=== PATIENT | male | born 1955 | race Caucasian/White ===

== ENCOUNTER 2023-07-15 21:03 | Inpatient (IN) | payer BC, MEDICARE ==
--- NOTE | 2023-07-15 21:37 | ED ---
SOB HPI - General Chief Complaint: Shortness of Breath Stated Complaint: SOB Time Seen by Provider: 07/15/23 21:15 Source: patient Mode of arrival: EMS Limitations: no limitations - History of Present Illness Initial Comments: 67-year-old male with past medical history of COPD on 2 L home O2, hypertension, congestive heart failure who presents to the emergency department with shortness of breath. He was a transfer from [facility]. He states that he has been using his inhaler 4 times a day. He has been wearing his oxygen. He continues to be short of breath. He went to the nurse who found him to have oxygen saturations in the 80s. He denies any chest pain. He has been at [facility] for 1 week for alcohol. He denies a cough. No history of DVT or PE. He does have some swelling in his right leg which is worse than his left. No fevers. No productive cough. No other alleviating, precipitating modifying factors - Related Data Home Medications Medication Instructions Recorded Confirmed Acamprosate Calcium [Campral] 666 mg PO TID 07/16/23 07/16/23 Albuterol Nebulized [Ventolin 2.5 mg INHALATION RT-Q4H PRN 07/16/23 07/16/23 Nebulized] Albuterol Sulfate [Albuterol 2 puff PO RT-QID PRN 07/16/23 07/16/23 Sulfate Hfa] Aspirin EC [Ecotrin Low Dose] 81 mg PO DAILY 07/16/23 07/16/23 Clopidogrel [Plavix] 75 mg PO DAILY 07/16/23 07/16/23 Escitalopram [Lexapro] 5 mg PO DAILY 07/16/23 07/16/23 Ezetimibe [Zetia] 10 mg PO HS 07/16/23 07/16/23 Fluticasone/Umeclidin/Vilanter 1 puff INHALATION RT-DAILY 07/16/23 07/16/23 [Trelehelena Ellipta 100-62.5-25] Loperamide HCl [Imodium A-D] 4 mg PO QID PRN 07/16/23 07/16/23 Losartan [Cozaar] 25 mg PO HS 07/16/23 07/16/23 Metoprolol Tartrate [Lopressor] 25 mg PO BID 07/16/23 07/16/23 Nitroglycerin Sl Tabs [Nitrostat] 0.4 mg SUBLINGUAL Q5M PRN 07/16/23 07/16/23 Omeprazole [PriLOSEC] 40 mg PO HS 07/16/23 07/16/23 Ranolazine [Ranexa] 1,000 mg PO BID 07/16/23 07/16/23 Rosuvastatin [Crestor] 10 mg PO HS 07/16/23 07/16/23 amLODIPine [Norvasc] 2.5 mg PO DAILY 07/16/23 07/16/23 Allergies Allergy/AdvReac Type Severity Reaction Status Date / Time No Known Allergies Allergy Verified 07/16/23 07:19 Review of Systems ROS Statement: Those systems with pertinent positive or pertinent negative responses have been documented in the HPI. ROS Other: All systems not noted in ROS Statement are negative. Past Medical History Past Medical History: Heart Failure, COPD, Hypertension History of Any Multi-Drug Resistant Organisms: None Reported Past Surgical History: Appendectomy, Cholecystectomy Additional Past Surgical History / Comment(s): Bypass, stent, aortic aneurysm Past Psychological History: Anxiety Smoking Status: Former smoker Past Alcohol Use History: Abuse Past Drug Use History: None Reported General Exam Limitations: no limitations General appearance: alert, in no apparent distress Head exam: Present: atraumatic, normocephalic, normal inspection Eye exam: Present: normal appearance, PERRL, EOMI. Absent: scleral icterus, conjunctival injection, periorbital swelling ENT exam: Present: normal exam, mucous membranes moist Neck exam: Present: normal inspection. Absent: tenderness, meningismus, lymphad enopathy Respiratory exam: Present: accessory muscle use, decreased breath sounds Cardiovascular Exam: Present: regular rate, normal rhythm, normal heart sounds. Absent: systolic murmur, diastolic murmur, rubs, gallop, clicks GI/Abdominal exam: Present: soft, normal bowel sounds. Absent: distended, tenderness, guarding, rebound, rigid Back exam: Present: normal inspection Neurological exam: Present: alert, oriented X3, CN II-XII intact Psychiatric exam: Present: normal affect, normal mood Course Vital Signs 07/15/23 07/15/23 07/16/23 21:14 23:56 00:34 Temperature 98 F Pulse Rate 72 66 60 Pulse Rate [ Right] Respiratory 18 18 16 Rate Blood Pressure 160/68 156/99 156/99 Blood Pressure [Left Arm] O2 Sat by Pulse 90 L 93 L 96 Oximetry 07/16/23 07/16/23 07/16/23 00:51 01:00 01:01 Temperature Pulse Rate 67 64 65 Pulse Rate [ Right] Respiratory 12 Rate Blood Pressure 152/74 Blood Pressure [Left Arm] O2 Sat by Pulse 99 Oximetry 07/16/23 07/16/23 07/16/23 02:00 03:00 04:00 Temperature Pulse Rate 64 61 68 Pulse Rate [ Right] Respiratory 15 15 16 Rate Blood Pressure 150/62 150/57 145/64 Blood Pressure [Left Arm] O2 Sat by Pulse 95 95 95 Oximetry 07/16/23 07/16/23 07/16/23 04:32 04:41 05:00 Temperature Pulse Rate 82 67 68 Pulse Rate [ Right] Respiratory 16 Rate Blood Pressure 151/70 Blood Pressure [Left Arm] O2 Sat by Pulse 98 Oximetry 07/16/23 07/16/23 06:00 07:00 Temperature 97.9 F Pulse Rate 73 73 Pulse Rate [ 76 Right] Respiratory 14 16 Rate Blood Pressure 155/61 152/65 Blood Pressure 161/65 [Left Arm] O2 Sat by Pulse 99 92 L Oximetry Medical Decision Making - Medical Decision Making Was pt. sent in by a medical professional or institution ([facility], SENIOR APPLICATIONS ARCHITECT, urgent care, hospital, or assisted...) When possible be specific @ -Patient was sent in from [facility] Did you speak to anyone other than the patient for history (EMS, parent, family, police, friend...)? What history was obtained from this source @ -Spoke with EMS for history Did you review nursing and triage notes (agree or disagree)? Why? @ -I reviewed and agree with nursing and triage notes Were old charts reviewed (outside hosp., previous admission, EMS record, old EKG, old radiological studies, urgent care reports/EKG's, assisted records)? Report findings @ -No old charts were reviewed Differential Diagnosis (chest pain, altered mental status, abdominal pain women, abdominal pain men, vaginal bleeding, weakness, fever, dyspnea, syncope, headache, dizziness, GI bleed, back pain, seizure, CVA, palpatations, mental health, musculoskeletal)? @ -Differential Dyspnea: Coronary syndrome, arrhythmia, tamponade, asthma, COPD, pulmonary embolism, pneumonia, pneumothorax, pulmonary effusion, anaphylaxis, diabetic ketoacidosis, flailed chest, pulmonary contusion, diaphragmatic rupture, anemia, neuromuscular, this is not meant to be an all-inclusive list. EKG interpreted by me (3pts min.). @ -Yes and demonstrates sinus rhythm with a rate of 64. LA interval 156. QRS 117. QTc of 428. No acute ST segment elevation or depression X-rays interpreted by me (1pt min.). @ -Yes and demonstrates possible pneumonia CT interpreted by me (1pt min.). @ -Yes and does not demonstrate a PE U/S interpreted by me (1pt. min.). @ -None done What testing was considered but not performed or refused? (CT, X-rays, U/S, labs)? Why? @ -None What meds were considered but not given or refused? Why? @ -None Did you discuss the management of the patient with other professionals (professionals i.e. , PA, SENIOR APPLICATIONS ARCHITECT, lab, RT, psych nurse, psychiatric social worker supervisor, help desk support, teacher, strike warfare/missile systems officer, correctional casework specialist)? Give summary @ -Spoke with Edmundo from [facility] Was smoking cessation discussed for >3mins.? @ -No Was critical care preformed (if so, how long)? @ -No Were there social determinants of health that impacted care today? How? (Homelessness, low income, unemployed, alcoholism, drug addiction, transportation, low edu. Level, literacy, decrease access to med. care, usp, rehab)? @ -Patient is currently in rehab Was there de-escalation of care discussed even if they declined (Discuss DNR or withdrawal of care, Hospice)? DNR status @ -No What co-morbidities impacted this encounter? (DM, HTN, Smoking, COPD, CAD, Cancer, CVA, ARF, Chemo, Hep., AIDS, mental health diagnosis, sleep apnea, morbid obesity)? @ -COPD Was patient admitted / discharged? Hospital course, mention meds given and route, prescriptions, significant lab abnormalities, going to OR and other pertinent info. @ -Upon arrival patient seen and evaluated in room 3. Thorough history and physical exam was performed. Patient remains on 2 L of oxygen. Laboratory studies are conducted. Chest x-ray was performed. Patient was given a breathing treatment by EMS and a breathing treatment by myself. Laboratory studies and imaging is reviewed. Chest x-ray demonstrates possible pneumonia. Due to patient's work of breathing I did recommend admission. Patient was agreeable to this. Spoke with Edmundo from [facility] who will admit the patient Undiagnosed new problem with uncertain prognosis? @ -Yes Drug Therapy requiring intensive monitoring for toxicity (Heparin, Nitro, Insulin, Cardizem)? @ -No Were any procedures done? @ -No Diagnosis/symptom? @ -Acute exacerbation of chronic respiratory failure, acute exacerbation of COPD, possible pneumonia Acute, or Chronic, or Acute on Chronic? @ -Acute on chronic Uncomplicated (without systemic symptoms) or Complicated (systemic symptoms)? @ -Complicated Side effects of treatment? @ -No Exacerbation, Progression, or Severe Exacerbation? @ -Yes Poses a threat to life or bodily function? How? (Chest pain, [place], [place], pneumonia, PE, COPD, DKA, ARF, appy, cholecystitis, CVA, Diverticulitis, Homicidal, Suicidal, threat to staff... and all critical care pts) @ -Yes as patient does have increased work of breathing - Lab Data Result diagrams: 07/17/23 05:36 07/19/23 07:23 Lab Results 07/15/23 07/15/23 07/15/23 Range/Units 21:25 21:25 21:25 WBC 6.0 (3.8-10.6) k/uL RBC 4.16 L (4.30-5.90) m/uL Hgb 11.9 L (13.0-17.5) gm/dL Hct 36.1 L (39.0-53.0) % MCV 86.9 (80.0-100.0) fL MCH 28.6 (25.0-35.0) pg MCHC 32.9 (31.0-37.0) g/dL RDW 16.8 H (11.5-15.5) % Plt Count 221 (150-450) k/uL MPV 7.2 Immature Gran % (Auto) % Absolute Nucleated RBC % Neutrophils % 70 % Lymphocytes % 13 % Monocytes % 12 % Eosinophils % 2 % Basophils % 1 % Immature Gran # (0.00-0.04) X 10*3/uL Neutrophils # 4.2 (1.3-7.7) k/uL Lymphocytes # 0.8 L (1.0-4.8) k/uL Monocytes # 0.7 (0-1.0) k/uL Eosinophils # 0.1 (0-0.7) k/uL Basophils # 0.1 (0-0.2) k/uL NRBC/100 WBC Diff (0.00-0.01) X 10*3/uL Anisocytosis Slight PT 10.4 (10.0-12.5) sec INR 0.9 (<1.2) APTT 27.6 (22.0-30.0) sec D-Dimer (<0.60) mg/L FEU Sodium 130 L (137-145) mmol/L Potassium 4.4 (3.5-5.1) mmol/L Chloride 100 (98-107) mmol/L Carbon Dioxide 24 (22-30) mmol/L Anion Gap 6 mmol/L BUN 29 H (9-20) mg/dL Creatinine 0.95 (0.66-1.25) mg/dL Est GFR (CKD-EPI) (>=60) Est GFR (CKD-EPI)AfAm >90 (>60 ml/min/1.73 sqM) Est GFR (CKD-EPI)NonAf 83 (>60 ml/min/1.73 sqM) BUN/Creatinine Ratio (12.00-20.00) Ratio Glucose 101 H (74-99) mg/dL Plasma Lactic Acid Nico (0.7-2.0) mmol/L Calcium 8.8 (8.4-10.2) mg/dL Total Bilirubin 0.5 (0.2-1.3) mg/dL AST 24 (17-59) U/L ALT 14 (4-49) U/L Alkaline Phosphatase 62 (38-126) U/L Troponin I (0.000-0.034) ng/mL NT-Pro-B Natriuret Pep 759 pg/mL Total Protein 6.6 (6.3-8.2) g/dL Albumin 3.8 (3.5-5.0) g/dL Procalcitonin (0.02-0.09) ng/mL Influenza Type A (PCR) (Not Detectd) Influenza Type B (PCR) (Not Detectd) Urine Legionella Ag (Negative) RSV (PCR) (Not Detectd) SARS-CoV-2 (PCR) (Not Detectd) 05/16/24 05/16/24 05/16/24 Range/Units 21:25 21:25 21:43 WBC (3.8-10.6) k/uL RBC (4.30-5.90) m/uL Hgb (13.0-17.5) gm/dL Hct (39.0-53.0) % MCV (80.0-100.0) fL MCH (25.0-35.0) pg MCHC (31.0-37.0) g/dL RDW (11.5-15.5) % Plt Count (150-450) k/uL MPV Immature Gran % (Auto) % Absolute Nucleated RBC % Neutrophils % % Lymphocytes % % Monocytes % % Eosinophils % % Basophils % % Immature Gran # (0.00-0.04) X 10*3/uL Neutrophils # (1.3-7.7) k/uL Lymphocytes # (1.0-4.8) k/uL Monocytes # (0-1.0) k/uL Eosinophils # (0-0.7) k/uL Basophils # (0-0.2) k/uL NRBC/100 WBC Diff (0.00-0.01) X 10*3/uL Anisocytosis PT (10.0-12.5) sec INR (<1.2) APTT (22.0-30.0) sec D-Dimer (<0.60) mg/L FEU Sodium (137-145) mmol/L Potassium (3.5-5.1) mmol/L Chloride (98-107) mmol/L Carbon Dioxide (22-30) mmol/L Anion Gap mmol/L BUN (9-20) mg/dL Creatinine (0.66-1.25) mg/dL Est GFR (CKD-EPI) (>=60) Est GFR (CKD-EPI)AfAm (>60 ml/min/1.73 sqM) Est GFR (CKD-EPI)NonAf (>60 ml/min/1.73 sqM) BUN/Creatinine Ratio (12.00-20.00) Ratio Glucose (74-99) mg/dL Plasma Lactic Acid Nico 0.8 (0.7-2.0) mmol/L Calcium (8.4-10.2) mg/dL Total Bilirubin (0.2-1.3) mg/dL AST (17-59) U/L ALT (4-49) U/L Alkaline Phosphatase (38-126) U/L Troponin I <0.012 (0.000-0.034) ng/mL NT-Pro-B Natriuret Pep pg/mL Total Protein (6.3-8.2) g/dL Albumin (3.5-5.0) g/dL Procalcitonin (0.02-0.09) ng/mL Influenza Type A (PCR) Not Detected (Not Detectd) Influenza Type B (PCR) Not Detected (Not Detectd) Urine Legionella Ag (Negative) RSV (PCR) Not Detected (Not Detectd) SARS-CoV-2 (PCR) Not Detected (Not Detectd) 07/15/23 07/16/23 07/17/23 Range/Units 21:55 03:19 05:30 WBC (3.8-10.6) k/uL RBC (4.30-5.90) m/uL Hgb (13.0-17.5) gm/dL Hct (39.0-53.0) % MCV (80.0-100.0) fL MCH (25.0-35.0) pg MCHC (31.0-37.0) g/dL RDW (11.5-15.5) % Plt Count (150-450) k/uL MPV Immature Gran % (Auto) % Absolute Nucleated RBC % Neutrophils % % Lymphocytes % % Monocytes % % Eosinophils % % Basophils % % Immature Gran # (0.00-0.04) X 10*3/uL Neutrophils # (1.3-7.7) k/uL Lymphocytes # (1.0-4.8) k/uL Monocytes # (0-1.0) k/uL Eosinophils # (0-0.7) k/uL Basophils # (0-0.2) k/uL NRBC/100 WBC Diff (0.00-0.01) X 10*3/uL Anisocytosis PT (10.0-12.5) sec INR (<1.2) APTT (22.0-30.0) sec D-Dimer 1.53 H (<0.60) mg/L FEU Sodium (137-145) mmol/L Potassium (3.5-5.1) mmol/L Chloride (98-107) mmol/L Carbon Dioxide (22-30) mmol/L Anion Gap mmol/L BUN (9-20) mg/dL Creatinine (0.66-1.25) mg/dL Est GFR (CKD-EPI) (>=60) Est GFR (CKD-EPI)AfAm (>60 ml/min/1.73 sqM) Est GFR (CKD-EPI)NonAf (>60 ml/min/1.73 sqM) BUN/Creatinine Ratio (12.00-20.00) Ratio Glucose (74-99) mg/dL Plasma Lactic Acid Nico (0.7-2.0) mmol/L Calcium (8.4-10.2) mg/dL Total Bilirubin (0.2-1.3) mg/dL AST (17-59) U/L ALT (4-49) U/L Alkaline Phosphatase (38-126) U/L Troponin I (0.000-0.034) ng/mL NT-Pro-B Natriuret Pep pg/mL Total Protein (6.3-8.2) g/dL Albumin (3.5-5.0) g/dL Procalcitonin 0.03 (0.02-0.09) ng/mL Influenza Type A (PCR) (Not Detectd) Influenza Type B (PCR) (Not Detectd) Urine Legionella Ag Negative (Negative) RSV (PCR) (Not Detectd) SARS-CoV-2 (PCR) (Not Detectd) 07/17/23 07/17/23 07/18/23 Range/Units 05:36 05:36 04:05 WBC 9.32 (3.8-10.6) k/uL RBC 3.78 L (4.30-5.90) m/uL Hgb 10.5 L (13.0-17.5) gm/dL Hct 32.4 L (39.0-53.0) % MCV 85.7 (80.0-100.0) fL MCH 27.8 (25.0-35.0) pg MCHC 32.4 (31.0-37.0) g/dL RDW 17.3 H (11.5-15.5) % Plt Count 227 (150-450) k/uL MPV 9.1 L Immature Gran % (Auto) 0.40 % Absolute Nucleated RBC 0 % Neutrophils % 86.0 % Lymphocytes % 4.5 % Monocytes % 9.1 % Eosinophils % 0 % Basophils % 0 % Immature Gran # 0.04 (0.00-0.04) X 10*3/uL Neutrophils # 8.01 H (1.3-7.7) k/uL Lymphocytes # 0.42 L (1.0-4.8) k/uL Monocytes # 0.85 (0-1.0) k/uL Eosinophils # 0 L (0-0.7) k/uL Basophils # 0 (0-0.2) k/uL NRBC/100 WBC Diff 0 (0.00-0.01) X 10*3/uL Anisocytosis PT (10.0-12.5) sec INR (<1.2) APTT (22.0-30.0) sec D-Dimer (<0.60) mg/L FEU Sodium 135 136 (137-145) mmol/L Potassium 4.8 4.2 (3.5-5.1) mmol/L Chloride 100 97 (98-107) mmol/L Carbon Dioxide 25.3 28.5 (22-30) mmol/L Anion Gap 9.70 10.50 mmol/L BUN 25.8 23.4 (9-20) mg/dL Creatinine 0.9 1.1 (0.66-1.25) mg/dL Est GFR (CKD-EPI) 94 74 (>=60) Est GFR (CKD-EPI)AfAm (>60 ml/min/1.73 sqM) Est GFR (CKD-EPI)NonAf (>60 ml/min/1.73 sqM) BUN/Creatinine Ratio 28.67 H 21.27 H (12.00-20.00) Ratio Glucose 141 H 99 (74-99) mg/dL Plasma Lactic Acid Nico (0.7-2.0) mmol/L Calcium 8.5 L 8.5 L (8.4-10.2) mg/dL Total Bilirubin (0.2-1.3) mg/dL AST (17-59) U/L ALT (4-49) U/L Alkaline Phosphatase (38-126) U/L Troponin I (0.000-0.034) ng/mL NT-Pro-B Natriuret Pep pg/mL Total Protein (6.3-8.2) g/dL Albumin (3.5-5.0) g/dL Procalcitonin (0.02-0.09) ng/mL Influenza Type A (PCR) (Not Detectd) Influenza Type B (PCR) (Not Detectd) Urine Legionella Ag (Negative) RSV (PCR) (Not Detectd) SARS-CoV-2 (PCR) (Not Detectd) 07/19/23 Range/Units 07:23 WBC (3.8-10.6) k/uL RBC (4.30-5.90) m/uL Hgb (13.0-17.5) gm/dL Hct (39.0-53.0) % MCV (80.0-100.0) fL MCH (25.0-35.0) pg MCHC (31.0-37.0) g/dL RDW (11.5-15.5) % Plt Count (150-450) k/uL MPV Immature Gran % (Auto) % Absolute Nucleated RBC % Neutrophils % % Lymphocytes % % Monocytes % % Eosinophils % % Basophils % % Immature Gran # (0.00-0.04) X 10*3/uL Neutrophils # (1.3-7.7) k/uL Lymphocytes # (1.0-4.8) k/uL Monocytes # (0-1.0) k/uL Eosinophils # (0-0.7) k/uL Basophils # (0-0.2) k/uL NRBC/100 WBC Diff (0.00-0.01) X 10*3/uL Anisocytosis PT (10.0-12.5) sec INR (<1.2) APTT (22.0-30.0) sec D-Dimer (<0.60) mg/L FEU Sodium 135 (137-145) mmol/L Potassium 4.0 (3.5-5.1) mmol/L Chloride 98 (98-107) mmol/L Carbon Dioxide 27.3 (22-30) mmol/L Anion Gap 9.70 mmol/L BUN 23.7 (9-20) mg/dL Creatinine 1.2 (0.66-1.25) mg/dL Est GFR (CKD-EPI) 66 (>=60) Est GFR (CKD-EPI)AfAm (>60 ml/min/1.73 sqM) Est GFR (CKD-EPI)NonAf (>60 ml/min/1.73 sqM) BUN/Creatinine Ratio 19.75 (12.00-20.00) Ratio Glucose 114 H (74-99) mg/dL Plasma Lactic Acid Nico (0.7-2.0) mmol/L Calcium 8.8 (8.4-10.2) mg/dL Total Bilirubin (0.2-1.3) mg/dL AST (17-59) U/L ALT (4-49) U/L Alkaline Phosphatase (38-126) U/L Troponin I (0.000-0.034) ng/mL NT-Pro-B Natriuret Pep pg/mL Total Protein (6.3-8.2) g/dL Albumin (3.5-5.0) g/dL Procalcitonin (0.02-0.09) ng/mL Influenza Type A (PCR) (Not Detectd) Influenza Type B (PCR) (Not Detectd) Urine Legionella Ag (Negative) RSV (PCR) (Not Detectd) SARS-CoV-2 (PCR) (Not Detectd) Disposition Clinical Impression: COPD exacerbation, Pneumonia Disposition: ADMITTED IP TO THIS HOSP Condition: Stable Is patient prescribed a controlled substance at d/c from ED?: No Time of Disposition: : Decision to Admit Reason: Admit from EC Decision Date: 07/16/23 Decision Time: :57
[2023-07-15 21:48] LABS: Anisocytosis Slight; Basophils # (A) 0.1 k/uL (0-0.2); Basophils % (A) 1 %; Eosinophils # (A) 0.1 k/uL (0-0.7); Eosinophils % (A) 2 %; HCT 36.1 % (39.0-53.0); HGB 11.9 gm/dL (13.0-17.5); Lymphocytes # (A) 0.8 k/uL (1.0-4.8); Lymphocytes % (A) 13 %; MCH 28.6 pg (25.0-35.0); MCHC 32.9 g/dL (31.0-37.0); MCV 86.9 fL (80.0-100.0); Mean Platelet Volume 7.2; Monocytes # (A) 0.7 k/uL (0-1.0); Monocytes % (A) 12 %; Neutrophils # (A) 4.2 k/uL (1.3-7.7); Neutrophils % (A) 70 %; Platelet Count 221 k/uL (150-450); RBC 4.16 m/uL (4.30-5.90); RDW 16.8 % (11.5-15.5)
[2023-07-15 21:56] LABS: ALT 14 U/L (4-49); AST 24 U/L (17-59); African American GFR (CKD) >90 (>60 ml/min/1.73 sqM); Albumin 3.8 g/dL (3.5-5.0); Alkaline Phosphatase 62 U/L (38-126); Anion Gap 6 mmol/L; Blood Urea Nitrogen 29 mg/dL (9-20); Calcium 8.8 mg/dL (8.4-10.2); Carbon Dioxide 24 mmol/L (22-30); Chloride 100 mmol/L (98-107); Glucose 101 mg/dL (74-99); Non-African American GFR(CKD) 83 (>60 ml/min/1.73 sqM); Potassium 4.4 mmol/L (3.5-5.1); Sodium 130 mmol/L (137-145); Total Bilirubin 0.5 mg/dL (0.2-1.3); Total Protein 6.6 g/dL (6.3-8.2)
[2023-07-15 21:57] LABS: INR 0.9 (<1.2)
[2023-07-15 21:58] LABS: Partial Thromboplastin Time 27.6 sec (22.0-30.0); Prothrombin Time 10.4 sec (10.0-12.5)
[2023-07-15 22:04] LABS: NT-Pro-B-Type Natriuretic Pept 759 pg/mL
--- NOTE | 2023-07-15 22:04 | XR ---
EXAMINATION: XR chest 2V: 07/15/2023 9:47 PM CLINICAL INDICATION: difficulty breathing. ED patient. TECHNIQUE: Departmental protocol COMPARISON: None FINDINGS / IMPRESSION: Ill-defined opacity is seen in both lung bases, suspicious for developing or resolving pneumonia. The right costophrenic angle is blunted, consistent with small right pleural effusion versus pleural thickening.The pleural spaces are otherwise negative. Sternal sutures and mediastinal clips noted. The cardiac silhouette is not enlarged. The skeletal structures and soft tissues are negative for acute findings.
[2023-07-16] MEDS: IPRATROPIUM-ALBUTEROL 3 ML NEB INHALATION STA (00:49)
--- NOTE | 2023-07-16 01:36 | US ---
EXAM: US Duplex Right Lower Extremity Veins CLINICAL HISTORY: ITS.REASON US Reason: leg swelling, sob TECHNIQUE: Real-time duplex ultrasound scan of the right lower extremity veins integrating B-mode two-dimensional vascular structure, Doppler spectral analysis, color flow Doppler imaging and compression. COMPARISON: No relevant prior studies available. FINDINGS: Deep veins: Unremarkable. No DVT in the visualized common femoral, femoral, proximal deep femoral or popliteal veins. The veins demonstrate normal color flow, are normally compressible, with normal phasic flow and/or augmentation response. Superficial veins: Unremarkable. No thrombus in the visualized great saphenous vein. Soft tissues: No acute findings. No popliteal cyst. IMPRESSION: No evidence of DVT in the right lower extremity.
[2023-07-16] MEDS ORDERED: NALOXONE 0.4 MG/ML 1 ML VIAL IV PRN (01:59)
[2023-07-16] MEDS ORDERED: PNEUMONIA PROTOCOL UTILIZED 1 EACH MISC PO PRN (02:02)
[2023-07-16] MEDS: methylPREDNISolone SOD SUCCI 125 MG/2 ML VIAL IV STA (02:20)
--- NOTE | 2023-07-16 02:27 | CT ---
EXAM: CT Angiography Chest With Intravenous Contrast CLINICAL HISTORY: ITS.REASON CT Reason: elevated d-dimer TECHNIQUE: Axial computed tomographic angiography images of the chest with intravenous contrast. CTDI is 22.8 mGy and DLP is 386.1 mGy-cm. This CT exam was performed using one or more of the following dose reduction techniques: automated exposure control, adjustment of the mA and/or kV according to patient size, and/or use of iterative reconstruction technique. MIP reconstructed images were created and reviewed. COMPARISON: No relevant prior studies available. FINDINGS: Artifacts: Breathing motion artifact. Pulmonary arteries: Breathing motion artifact limits evaluation of the smaller peripheral arteries Unremarkable. No pulmonary embolism. Aorta: Moderate atherosclerotic plaque and calcifications of the aorta. Partially visualized infrarenal aortic stent in the upper abdomen. No thoracic aortic aneurysm. Lungs: Centrilobular emphysema. Couple left upper lobe lung cysts. Mild right basilar atelectasis. No mass. Pleural space: Small right pleural effusion. No pneumothorax. Heart: Coronary calcifications. Query left atrial appendage clip. No cardiomegaly. No significant pericardial effusion. No evidence of RV dysfunction. Mediastinum: Small mediastinal nodes, nonspecific. Bones/joints: Median sternotomy wires. No acute fracture. No dislocation. Soft tissues: Unremarkable. Lymph nodes: Small and borderline enlarged bilateral hilar nodes up to 11 mm. IMPRESSION: 1. Small right pleural effusion. Mild right basilar atelectasis. 2. Small and borderline enlarged bilateral hilar nodes up to 11 mm. 3. Centrilobular emphysema.
[2023-07-16] MEDS: AZITHROMYCIN 500 MG in SODIUM CHLORIDE 0.9% 250 ML IVPB STA (03:14)
[2023-07-16] MEDS: IPRATROPIUM-ALBUTEROL 3 ML NEB INHALATION SCH (04:32)
[2023-07-16] MEDS: methylPREDNISolone SOD SUCCI 40 MG/ML 1 ML VIAL IV SCH (11:10)
[2023-07-16] MEDS: FUROSEMIDE 10 MG/ML 2 ML VIAL IV ONE (11:12)
[2023-07-16] MEDS: METOPROLOL TARTRATE 25 MG TAB PO SCH (11:12)
[2023-07-16] MEDS: CLOPIDOGREL 75 MG TAB PO SCH (11:13)
[2023-07-16] MEDS: ASPIRIN 81 MG PO SCH (11:13)
[2023-07-16] MEDS: HEPARIN SODIUM,PORCINE 5,000 UNIT/ML 1 ML VIAL SQ SCH (11:13)
[2023-07-16] MEDS: RANOLAZINE 500 MG TAB.ER.12H PO SCH (11:13)
[2023-07-16] MEDS: amLODIPine 2.5 MG TAB PO SCH (11:16)
[2023-07-16] MEDS: ESCITALOPRAM 5 MG TAB PO SCH (11:16)
--- NOTE | 2023-07-16 12:42 | CA ---
Transthoracic Echo Report Name: Mitch Fisher Age: 67 Gender: M : 1955 Exam Date: 07/16/2023 11:24 Exam Location: [facility] Ht (in): 67 Wt (lb): 180 Ordering Physician: Jessica Hardin Attending/Referring Phys: Wilfred SHEA Pricing Specialist Jerilyn Valentino, JESSICA Procedure CPT: Indications: chf Cardiac Hx: Hx of CABG Technical Quality: Fair Contrast 1: Total Dose (mL): Contrast 2: Total Dose (mL): MEASUREMENTS (Male / Female) Normal Values 2D ECHO LV Diastolic Diameter PLAX 4.0 cm 4.2 - 5.9 / 3.9 - 5.3 cm LV Systolic Diameter PLAX 2.8 cm IVS Diastolic Thickness 1.5 cm 0.6 - 1.0 / 0.6 - 0.9 cm LVPW Diastolic Thickness 1.3 cm 0.6 - 1.0 / 0.6 - 0.9 cm LV Relative Wall Thickness 0.7 RV Internal Dim ED PLAX 3.0 cm LA Systolic Diameter LX 3.5 cm 3.0 - 4.0 / 2.7 - 3.8 cm M-MODE Aortic Root Diameter MM 3.6 cm AV Cusp Separation MM 2.2 cm DOPPLER AV Peak Velocity 168.9 cm/s AV Peak Gradient 11.4 mmHg Mitral E Point Velocity 86.9 cm/s Mitral A Point Velocity 91.2 cm/s Mitral E to A Ratio 1.0 MV Deceleration Time 233.9 ms FINDINGS Left Ventricle Left ventricular ejection fraction is estimated at 55-60 %. Left ventricular cavity size normal. Normal left ventricular systolic function with no obvious regional wall motion abnormalities. Moderately increased left ventricular wall thickness. Right Ventricle Normal right ventricular size and function. Unable to estimate the right ventricular systolic pressure. Right Atrium Normal right atrial size. Left Atrium Normal left atrial size. Mitral Valve Structurally normal mitral valve. No mitral stenosis, regurgitation or prolapse. Aortic Valve Trileaflet aortic valve. Aortic valve sclerosis. No aortic valve stenosis or regurgitation. Tricuspid Valve Structurally normal tricuspid valve. No tricuspid stenosis, or prolapse.mild tricuspid regurgitation. Pulmonic Valve Structurally normal pulmonic valve. No pulmonic regurgitation. Pericardium No pericardial or pleural effusion. Aorta Normal size aortic root and proximal ascending aorta. CONCLUSIONS 1. Normal left ventricular size and systolic function 2. Mild tricuspid regurgitation Previewed by: Dr. Mayra Morillo MD (Electronically Signed) Final Date: 16 Jul 2023 12:41
--- NOTE | 2023-07-16 18:06 | P.HPIM ---
History of Present Illness H&P Date: 07/16/23 This is a pleasant 67 year old male with medical history of heart failure, coronary artery disease with prior open heart and stenting, oxygen dependent COPD, hypertension, aortic aneurysm, anxiety, former smoker, and chronic alcohol use. Patient has been at [facility] since last and reports having increased shortness of breath and leg swelling over the past 3 days. He does wear oxygen as needed states he was requiring it 21/09 and noted his pulse oximeter was reading into the 70s on 2L of oxygen. Patient states he has been unable to ambulate long distances. He does follow with a cardiology out of [facility]; Dr. Erick Stevens. States he is unsure what his ejection fraction is but is supposed to be on a 1 gram sodium restriction daily to help manage his heart failure. Patient feels he has been eating way more than that due to the diet and meals offered at [facility]. He comes in with sodium level of 130, BUN of 29, creatinine of 0.95. His viral panel was negative. Chest xray reveals ill-defined opacity both lung bases suspicious for developing or resolving pneumonia. There is small right pleural effusion. D-Dimer was positive and venous doppler negative right leg for dvt and chest CTA negative for pulmonary embolism. Patient does have small right pleural effusion, mild right basilar atelectasis, small and borderline enlarged bilateral hilar nodes up to 11mm and centrilobar emphysema. Patient has been admitted to the hospital in observation and will be diuresed. He is started on IV lasix 40 mg Q12 hr and echocardiogram requested. Plan is for return to [facility] when medically stable. REVIEW OF SYSTEMS: CONSTITUTIONAL: No fever, no malaise, no fatigue. HEENT: No recent visual problems or hearing problems. Denied any sore throat. CARDIOVASCULAR: No chest pain, orthopnea, PND, no palpitations, no syncope. PULMONARY: Reports shortness of breath, exertional dyspnea, no cough, no hemoptysis. GASTROINTESTINAL: No diarrhea, no nausea, no vomiting, no abdominal pain. NEUROLOGICAL: No headaches, no weakness, no numbness. HEMATOLOGICAL: Denies any bleeding or petechiae. GENITOURINARY: Denies any burning micturition, frequency, or urgency. MUSCULOSKELETAL/RHEUMATOLOGICAL: Denies any joint pain, swelling, or any muscle pain. ENDOCRINE: Denies any polyuria or polydipsia. The rest of the 14-point review of systems is negative. PHYSICAL EXAMINATION: GENERAL: The patient is alert and oriented x3, not in any acute distress. Well developed, well nourished. HEENT: Pupils are round and equally reacting to light. EOMI. No scleral icterus. No conjunctival pallor. Normocephalic, atraumatic. No pharyngeal erythema. No thyromegaly. CARDIOVASCULAR: S1 and S2 present. No murmurs, rubs, or gallops. PULMONARY: No wheezing noted there is faint bibasilar crackles. ABDOMEN: Soft, nontender, nondistended, normoactive bowel sounds. No palpable organomegaly. MUSCULOSKELETAL: No joint swelling or deformity. EXTREMITIES: No cyanosis, clubbing, or pedal edema. NEUROLOGICAL: Gross neurological examination did not reveal any focal deficits. SKIN: No rashes. Assessment and Plan Shortness of breath secondary to acute CHF exacerbation; unknown whether systolic or diastolic echocardiogram ordered and pending Hyponatremia hypervolemic expected to improve with IV lasix and repeat BMP in the AM. Oxygen dependent COPD Elevated D Dimer no evidence for pulmonary embolism Coronary artery disease with prior CABG/PCI on aspirin and plavix Hypertension resumed on losartan Hyperlipidemia continue on crestor Chronic alcoholism currently at [facility] for rehab with plans to return on discharge. Hx of anxiety on lexapro which has been reordered Former smoker GI prophylaxis DVT prophylaxis Full Code The impression and plan of care has been dictated by Jessica Hardin Nurse Practitioner as directed. Dr. Asher MD I have performed a history and physical examination and medical decision making of this patient, discussed the same with the dictator, and agree with the dictators assessment and plan as written, documented as a scribe. Based on total visit time, I have performed more than 50% of this visit. Past Medical History Past Medical History: Heart Failure, COPD, Hypertension History of Any Multi-Drug Resistant Organisms: None Reported Past Surgical History: Appendectomy, Cholecystectomy Additional Past Surgical History / Comment(s): Bypass, stent, aortic aneurysm Past Psychological History: Anxiety Smoking Status: Former smoker Past Alcohol Use History: Abuse Past Drug Use History: None Reported Additional Drug Use History / Comment(s): currently in [facility] for etoh abuse Medications and Allergies Home Medications Medication Instructions Recorded Confirmed Type Acamprosate Calcium [Campral] 666 mg PO TID 07/16/23 07/16/23 History Albuterol Nebulized [Ventolin 2.5 mg INHALATION RT-Q4H PRN 07/16/23 07/16/23 History Nebulized] Albuterol Sulfate [Albuterol 2 puff PO RT-QID PRN 07/16/23 07/16/23 History Sulfate Hfa] Aspirin EC [Ecotrin Low Dose] 81 mg PO DAILY 07/16/23 07/16/23 History Clopidogrel [Plavix] 75 mg PO DAILY 07/16/23 07/16/23 History Escitalopram [Lexapro] 5 mg PO DAILY 07/16/23 07/16/23 History Ezetimibe [Zetia] 10 mg PO HS 07/16/23 07/16/23 History Fluticasone/Umeclidin/Vilanter 1 puff INHALATION RT-DAILY 07/16/23 07/16/23 History [Trelegy Ellipta 100-62.5-25] Loperamide HCl [Imodium A-D] 4 mg PO QID PRN 07/16/23 07/16/23 History Losartan [Cozaar] 25 mg PO HS 07/16/23 07/16/23 History Metoprolol Tartrate [Lopressor] 25 mg PO BID 07/16/23 07/16/23 History Nitroglycerin Sl Tabs [Nitrostat] 0.4 mg SUBLINGUAL Q5M PRN 07/16/23 07/16/23 History Omeprazole [PriLOSEC] 40 mg PO HS 07/16/23 07/16/23 History Ranolazine [Ranexa] 1,000 mg PO BID 07/16/23 07/16/23 History Rosuvastatin [Crestor] 10 mg PO HS 07/16/23 07/16/23 History amLODIPine [Norvasc] 2.5 mg PO DAILY 07/16/23 07/16/23 History Allergies Allergy/AdvReac Type Severity Reaction Status Date / Time No Known Allergies Allergy Verified 07/16/23 07:19 Physical Exam Vitals: Vital Signs Temp Pulse Pulse Resp BP BP Pulse Ox 07/16/23 16:44 80 07/16/23 16:29 76 07/16/23 15:00 98.1 F 78 16 132/66 95 07/16/23 14:00 76 18 07/16/23 13:27 18 07/16/23 12:40 68 07/16/23 12:27 68 07/16/23 09:30 88 07/16/23 09:15 96 07/16/23 07:00 97.9 F 73 76 16 152/65 161/65 92 L 07/16/23 06:00 73 14 155/61 99 07/16/23 05:00 68 16 151/70 98 07/16/23 04:41 67 07/16/23 04:32 82 07/16/23 04:00 68 16 145/64 95 07/16/23 03:00 61 15 150/57 95 07/16/23 02:00 64 15 150/62 95 07/16/23 01:01 65 07/16/23 01:00 64 12 152/74 99 07/16/23 00:51 67 07/16/23 00:34 60 16 156/99 96 07/15/23 23:56 66 18 156/99 93 L 07/15/23 21:14 98 F 72 18 160/68 90 L Intake and Output 07/16/23 07/16/23 07/16/23 06:59 14:59 22:59 Other: # Voids 3 Weight 81.647 kg Results CBC & Chem 7: 07/15/23 21:25 07/15/23 21:25 Labs: Abnormal Lab Results - Last 24 Hours (Table) 07/15/23 07/15/23 07/15/23 Range/Units 21:25 21:25 21:55 RBC 4.16 L (4.30-5.90) m/uL Hgb 11.9 L (13.0-17.5) gm/dL Hct 36.1 L (39.0-53.0) % RDW 16.8 H (11.5-15.5) % Lymphocytes # 0.8 L (1.0-4.8) k/uL D-Dimer 1.53 H (<0.60) mg/L FEU Sodium 130 L (137-145) mmol/L BUN 29 H (9-20) mg/dL Glucose 101 H (74-99) mg/dL Thrombosis Risk Factor Assmnt - Choose All That Apply Each Risk Factor Represents 2 Points: Age 61-74 years Thrombosis Risk Factor Assessment Total Risk Factor Score: 2 Thrombosis Risk Factor Assessment Level: Low Risk Assessment and Plan Time with Patient: Greater than 30
[2023-07-16] MEDS: PANTOPRAZOLE 40 MG TABLET PO SCH (18:57)
[2023-07-16] MEDS: LOSARTAN 25 MG TAB PO SCH (20:16)
[2023-07-16] MEDS: ATORVASTATIN 20 MG TAB PO SCH (20:17)
[2023-07-16] MEDS: EZETIMIBE 10 MG TAB PO SCH (20:17)
[2023-07-16] MEDS: SYMBICORT 80-4.5 MCG INHALER INHALATION SCH (20:56)
[2023-07-17] MEDS: AZITHROMYCIN 500 MG TAB PO SCH (08:43)
[2023-07-17 09:35] LABS: Basophils # (A) 0 X 10*3/uL (0.00-0.10); Basophils % (A) 0 %; Eosinophils # (A) 0 X 10*3/uL (0.04-0.35); Eosinophils % (A) 0 %; HCT 32.4 % (39.6-50.0); HGB 10.5 g/dL (13.0-17.0); Lymphocytes # (A) 0.42 X 10*3/uL (0.90-5.00); Lymphocytes % (A) 4.5 %; MCH 27.8 pg (27.0-32.0); MCHC 32.4 g/dL (32.0-37.0); MCV 85.7 FL (80.0-97.0); Mean Platelet Volume 9.1 FL (9.5-12.2); Monocytes # (A) 0.85 X 10*3/uL (0.20-1.00); Monocytes % (A) 9.1 %; NRBC Per 100 WBC 0 X 10*3/uL (0.00-0.01); Neutrophils # (A) 8.01 X 10*3/uL (1.80-7.70); Platelet Count 227 X 10*3/uL (140-440); RBC 3.78 X 10*6/uL (4.40-5.60); RDW 17.3 % (11.5-14.5); WBC 9.32 X 10*3/uL (4.50-10.00)
[2023-07-17 09:59] LABS: BUN/Creat Ratio 28.67 Ratio (12.00-20.00); Blood Urea Nitrogen 25.8 mg/dL (9.0-27.0); Chloride 100 mmol/L (96-109); Glucose 141 mg/dL (70-110); Potassium 4.8 mmol/L (3.5-5.5); Sodium 135 mmol/L (135-145)
[2023-07-17 10:00] LABS: Calcium 8.5 mg/dL (8.7-10.3); Carbon Dioxide 25.3 mmol/L (21.6-31.8)
--- NOTE | 2023-07-17 12:08 | XR ---
EXAMINATION TYPE: XR chest 2V DATE OF EXAM: 07/17/2023 6:33 AM CLINICAL INDICATION:Male, 67 years old with history of pneumonia; [facility] COMPARISON: 07/15/2023 TECHNIQUE: XR chest 2V. Frontal and lateral views of the chest.. FINDINGS: EKG leads overlie the chest. No indwelling lines are seen. Sternotomy wires and left atrial appendag e occlusion device. Stable cardiomediastinal silhouette. Heart size is within normal limits. Moderate vascular calcificat ion of the aorta. The right basilar pleural/parenchymal opacity is increased slightly. Left lung appears stable, with m ild stranding suggesting subsegmental atelectasis versus scarring in the lung base. Diffuse interstit ial prominence bilaterally again noted. No visible pneumothorax. Bony structures appear grossly unchanged. Nonacute appearing left lateral rib fracture deformity. IMPRESSION: Slightly increased right basilar pleural/peripheral opacity suggesting pleural effusion with adjacent atelectasis. Some airspace disease in the adjacent lung is suggested to reflect edema or pneumonia.
--- NOTE | 2023-07-17 13:47 | P.PN ---
Subjective Progress Note Date: 07/17/23 This is a pleasant 67 year old male with medical history of heart failure, coronary artery disease with prior open heart and stenting, oxygen dependent COPD, hypertension, aortic aneurysm, anxiety, former smoker, and chronic alcohol use. Patient has been at [facility] since last and reports having increased shortness of breath and leg swelling over the past 3 days. He does wear oxygen as needed states he was requiring it 21/09 and noted his pulse oximeter was reading into the 70s on 2L of oxygen. Patient states he has been unable to ambulate long distances. He does follow with a cardiology out of [facility]; Dr. Erick Stevens. States he is unsure what his ejection fraction is but is supposed to be on a 1 gram sodium restriction daily to help manage his heart failure. Patient feels he has been eating way more than that due to the diet and meals offered at [facility]. He comes in with sodium level of 130, BUN of 29, creatinine of 0.95. His viral panel was negative. Chest xray reveals ill-defined opacity both lung bases suspicious for developing or resolving pneumonia. There is small right pleural effusion. D-Dimer was positive and venous doppler negative right leg for dvt and chest CTA negative for pulmonary embolism. Patient does have small right pleural effusion, mild right basilar atelectasis, small and borderline enlarged bilateral hilar nodes up to 11mm and centrilobar emphysema. Patient has been admitted to the hospital in observation and will be diuresed. He is started on IV lasix 40 mg Q12 hr and echocardiogram requested. Plan is for return to [facility] when medically stable. 07/17/2023 Patient is evaluated in follow-up today on the medical floor. He does impart minimal improvement in his shortness of breath after receiving a dose of IV Lasix. His echocardiogram comes back with normal ejection fraction EF 55 to 60% with mild tricuspid regurgitation. Patient did have improvement in his sodium level from 130 up to 135 with IV Lasix and we will continue this overnight. Follow up chest x-ray shows slightly increased right basilar pleural/peripheral opacity suggesting pleural effusion with adjacent atelectasis. There is some airspace disease in the adjacent lung suggestive to reflect edema or pneumonia. Blood Culture remains negative and patient has not had an elevated white blood cell count. Review of Systems Constitutional: Denied any fatigue denied any fever. Cardio vascular: denied any chest pain, palpitations Gastrointestinal: denied any nausea, vomiting, diarrhea Pulmonary: Reports shortness of breath, no cough. Neurologic denied any new focal deficits All inpatient medications were reviewed and appropriate changes in these medications as dictated in the interval history and assessment and plan. PHYSICAL EXAMINATION: GENERAL: The patient is alert and oriented x3, not in any acute distress. Well developed, well nourished. HEENT: Pupils are round and equally reacting to light. EOMI. No scleral icterus. No conjunctival pallor. Normocephalic, atraumatic. No pharyngeal erythema. No thyromegaly. CARDIOVASCULAR: S1 and S2 present. No murmurs, rubs, or gallops. PULMONARY: No wheezing noted there is faint bibasilar crackles. ABDOMEN: Soft, nontender, nondistended, normoactive bowel sounds. No palpable organomegaly. MUSCULOSKELETAL: No joint swelling or deformity. EXTREMITIES: No cyanosis, clubbing, or pedal edema. NEUROLOGICAL: Gross neurological examination did not reveal any focal deficits. SKIN: No rashes. Assessment and Plan Shortness of breath secondary to acute CHF exacerbation; diastolic dysfunction with normal E patient will continue on IV lasix 40 mg Q12hr and repeat BMP in the AM. Hyponatremia hypervolemic improved with diuresis. Oxygen dependent COPD Elevated D Dimer no evidence for pulmonary embolism Coronary artery disease with prior CABG/PCI on aspirin and plavix Hypertension resumed on losartan Hyperlipidemia continue on crestor Chronic alcoholism currently at [facility] for rehab with plans to return on discharge. Hx of anxiety on lexapro which has been reordered Former smoker GI prophylaxis DVT prophylaxis Full Code The impression and plan of care has been dictated by Jessica Hardin, Nurse Practitioner as directed. Dr. Asher MD I have performed a history and physical examination and medical decision making of this patient, discussed the same with the dictator, and agree with the dictators assessment and plan as written, documented as a scribe. Based on total visit time, I have performed more than 50% of this visit. Objective - Vital Signs Vital signs: Vital Signs Temp 97.7 F 07/17/23 07:00 Pulse 74 07/17/23 12:04 Resp 18 07/17/23 07:00 BP 153/68 07/17/23 07:00 Pulse Ox 96 07/17/23 08:21 FiO2 Intake & Output 07/16/23 07/17/23 07/17/23 18:59 06:59 18:59 Intake Total 236 Balance 236 Weight 81.647 kg Intake: Oral 236 Other: # Voids 3 1 - Labs CBC & Chem 7: 07/17/23 05:36 07/17/23 05:36 Labs: Abnormal Lab Results - Last 24 Hours (Table) 07/17/23 07/17/23 Range/Units 05:36 05:36 RBC 3.78 L (4.40-5.60) X 10*6/uL Hgb 10.5 L (13.0-17.0) g/dL Hct 32.4 L (39.6-50.0) % RDW 17.3 H (11.5-14.5) % MPV 9.1 L (9.5-12.2) FL Neutrophils # 8.01 H (1.80-7.70) X 10*3/uL Lymphocytes # 0.42 L (0.90-5.00) X 10*3/uL Eosinophils # 0 L (0.04-0.35) X 10*3/uL BUN/Creatinine Ratio 28.67 H (12.00-20.00) Ratio Glucose 141 H (70-110) mg/dL Calcium 8.5 L (8.7-10.3) mg/dL Microbiology - Last 24 Hours (Table) 07/16/23 02:20 Blood Culture - Preliminary Blood 07/16/23 02:05 Blood Culture - Preliminary Blood Assessment and Plan Time with Patient: Less than 30
[2023-07-17] MEDS: FUROSEMIDE 10 MG/ML 4 ML VIAL IV SCH (15:15)
[2023-07-18 09:51] LABS: BUN/Creat Ratio 21.27 Ratio (12.00-20.00); Blood Urea Nitrogen 23.4 mg/dL (9.0-27.0); Calcium 8.5 mg/dL (8.7-10.3); Carbon Dioxide 28.5 mmol/L (21.6-31.8); Chloride 97 mmol/L (96-109); Glucose 99 mg/dL (70-110); Potassium 4.2 mmol/L (3.5-5.5); Sodium 136 mmol/L (135-145)
--- NOTE | 2023-07-18 15:51 | P.PN ---
Subjective Progress Note Date: 07/18/23 This is a pleasant 67 year old male with medical history of heart failure, coronary artery disease with prior open heart and stenting, oxygen dependent COPD, hypertension, aortic aneurysm, anxiety, former smoker, and chronic alcohol use. Patient has been at [facility] since last and reports having increased shortness of breath and leg swelling over the past 3 days. He does wear oxygen as needed states he was requiring it 21/09 and noted his pulse oximeter was reading into the 70s on 2L of oxygen. Patient states he has been unable to ambulate long distances. He does follow with a cardiology out of [facility]; Dr. Erick Stevens. States he is unsure what his ejection fraction is but is supposed to be on a 1 gram sodium restriction daily to help manage his heart failure. Patient feels he has been eating way more than that due to the diet and meals offered at [facility]. He comes in with sodium level of 130, BUN of 29, creatinine of 0.95. His viral panel was negative. Chest xray reveals ill-defined opacity both lung bases suspicious for developing or resolving pneumonia. There is small right pleural effusion. D-Dimer was positive and venous doppler negative right leg for dvt and chest CTA negative for pulmonary embolism. Patient does have small right pleural effusion, mild right basilar atelectasis, small and borderline enlarged bilateral hilar nodes up to 11mm and centrilobar emphysema. Patient has been admitted to the hospital in observation and will be diuresed. He is started on IV lasix 40 mg Q12 hr and echocardiogram requested. Plan is for return to [facility] when medically stable. 07/17/2023 Patient is evaluated in follow-up today on the medical floor. He does impart minimal improvement in his shortness of breath after receiving a dose of IV Lasix. His echocardiogram comes back with normal ejection fraction EF 55 to 60% with mild tricuspid regurgitation. Patient did have improvement in his sodium level from 130 up to 135 with IV Lasix and we will continue this overnight. Follow up chest x-ray shows slightly increased right basilar pleural/peripheral opacity suggesting pleural effusion with adjacent atelectasis. There is some airspace disease in the adjacent lung suggestive to reflect edema or pneumonia. Blood Culture remains negative and patient has not had an elevated white blood cell count. 07/18/2023 Patient is evaluated in follow-up today in the medical floor. Patient continues to report improvement in his shortness of breath and discontinued IV Lasix. Patient has been given an incentive spirometer. His renal function remains within normal limits. His oxygen saturation has improved but continues to drop down to 88% while on 2 L of nasal cannula ambulating and for this reason we will continue to monitor the patient overnight. Review of Systems Constitutional: Denied any fatigue denied any fever. Cardio vascular: denied any chest pain, palpitations Gastrointestinal: denied any nausea, vomiting, diarrhea Pulmonary: Reports shortness of breath, no cough. Neurologic denied any new focal deficits All inpatient medications were reviewed and appropriate changes in these medications as dictated in the interval history and assessment and plan. PHYSICAL EXAMINATION: GENERAL: The patient is alert and oriented x3, not in any acute distress. Well developed, well nourished. HEENT: Pupils are round and equally reacting to light. EOMI. No scleral icterus. No conjunctival pallor. Normocephalic, atraumatic. No pharyngeal erythema. No thyromegaly. CARDIOVASCULAR: S1 and S2 present. No murmurs, rubs, or gallops. PULMONARY: No wheezing noted there is faint bibasilar crackles. ABDOMEN: Soft, nontender, nondistended, normoactive bowel sounds. No palpable organomegaly. MUSCULOSKELETAL: No joint swelling or deformity. EXTREMITIES: No cyanosis, clubbing, or pedal edema. NEUROLOGICAL: Gross neurological examination did not reveal any focal deficits. SKIN: No rashes. Assessment and Plan Shortness of breath secondary to acute CHF exacerbation; diastolic dysfunction with normal E patient will continue on IV lasix 40 mg Q12hr and repeat BMP in the AM. Hyponatremia hypervolemic improved with diuresis. Oxygen dependent COPD Elevated D Dimer no evidence for pulmonary embolism Coronary artery disease with prior CABG/PCI on aspirin and plavix Hypertension resumed on losartan Hyperlipidemia continue on crestor Chronic alcoholism currently at [facility] for rehab with plans to return on discharge. Hx of anxiety on lexapro which has been reordered Former smoker GI prophylaxis DVT prophylaxis Full Code The impression and plan of care has been dictated by Jessica Hardin, Nurse Practitioner as directed. Dr. Asher MD I have performed a history and physical examination and medical decision making of this patient, discussed the same with the dictator, and agree with the dictators assessment and plan as written, documented as a scribe. Based on total visit time, I have performed more than 50% of this visit. Objective - Vital Signs Vital signs: Vital Signs Temp 98.4 F 07/18/23 15:00 Pulse 82 07/18/23 15:46 Resp 16 07/17/23 20:00 BP 134/68 07/18/23 15:00 Pulse Ox 96 07/18/23 15:00 FiO2 Intake & Output 07/17/23 07/18/23 07/18/23 18:59 06:59 18:59 Intake Total 416 798 Balance 416 798 Intake: Oral 416 798 Other: # Voids 4 5 3 - Labs CBC & Chem 7: 07/17/23 05:36 07/18/23 04:05 Labs: Abnormal Lab Results - Last 24 Hours (Table) 07/18/23 Range/Units 04:05 BUN/Creatinine Ratio 21.27 H (12.00-20.00) Ratio Calcium 8.5 L (8.7-10.3) mg/dL Microbiology - Last 24 Hours (Table) 07/16/23 02:20 Blood Culture - Preliminary Blood 07/16/23 02:05 Blood Culture - Preliminary Blood Assessment and Plan Time with Patient: Less than 30
[2023-07-19 10:39] LABS: BUN/Creat Ratio 19.75 Ratio (12.00-20.00); Blood Urea Nitrogen 23.7 mg/dL (9.0-27.0); Calcium 8.8 mg/dL (8.7-10.3); Carbon Dioxide 27.3 mmol/L (21.6-31.8); Chloride 98 mmol/L (96-109); Glucose 114 mg/dL (70-110); Sodium 135 mmol/L (135-145)
[2023-07-19 15:19] VITALS: BP 135/76; PULSE 68; TEMP 97.8
[2023-07-19 15:20] VITALS: RESP 18
--- NOTE | 2023-07-20 15:49 | P.DS ---
Providers Date of admission: 07/19/23 09:22 Attending physician: Roderick Jasso Primary care physician: Mitch Espinosa Roe [facility] Course: Final Diagnosis Shortness of breath secondary to acute CHF exacerbation; diastolic dysfunction Hyponatremia hypervolemic improved with diuresis. Oxygen dependent COPD Elevated D Dimer no evidence for pulmonary embolism Coronary artery disease with prior CABG/PCI on aspirin and plavix Hypertension resumed on losartan Hyperlipidemia continue on crestor Chronic alcoholism currently at [facility] for rehab with plans to return on discharge. Hx of anxiety on lexapro which has been reordered Former smoker Discharge Disposition Patient stable for return to [facility]. Patient will not require any Lasix on discharge and is recommended to follow-up with his known back hoe machine operator in 1 to 2 weeks. Continue all same home medications. Hospital Course This is a pleasant 67 year old male with medical history of heart failure, coronary artery disease with prior open heart and stenting, oxygen dependent COPD, hypertension, aortic aneurysm, anxiety, former smoker, and chronic alcohol use. Patient has been at [facility] since last and reports having increased shortness of breath and leg swelling over the past 3 days. He does wear oxygen as needed states he was requiring it 21/09 and noted his pulse oximeter was reading into the 70s on 2L of oxygen. Patient states he has been unable to ambulate long distances. He does follow with a cardiology out of [facility] [place]; Dr. Erick Stevens. States he is unsure what his ejection fraction is but is supposed to be on a 1 gram sodium restriction daily to help manage his heart failure. Patient feels he has been eating way more than that due to the diet and meals offered at [facility]. He comes in with sodium level of 130, BUN of 29, creatinine of 0.95. His viral panel was negative. Chest xray reveals ill-defined opacity both lung bases suspicious for developing or resolving pneumonia. There is small right pleural effusion. D-Dimer was positive and venous doppler negative right leg for dvt and chest CTA negative for pulmonary embolism. Patient does have small right pleural effusion, mild right basilar atelectasis, small and borderline enlarged bilateral hilar nodes up to 11mm and centrilobar emphysema. Patient has been admitted to the hospital in observation and will be diuresed. He is started on IV lasix 40 mg Q12 hr and echocardiogram was done with normal ejection fraction EF 55 to 60% with mild tricuspid regurgitation. Patient did have improvement in his sodium level from 130 up to 135 with IV Lasix and we will continue this overnight. Follow up chest x-ray shows slightly increased right basilar pleural/peripheral opacity suggesting pleural effusion with adjacent atelectasis. There is some airspace disease in the adjacent lung suggestive to reflect edema or pneumonia. Blood Culture remains negative and patient has not had an elevated white blood cell count. Patient continues to report improvement in his shortness of breath and discontinued IV Lasix. Patient has been given an incentive spirometer. His renal function remains within normal limits. His oxygen saturation has improved but continues to drop down to 88% while on 2 L of nasal cannula ambulating and per patient this is normal for him and he recovers with out incident. He will be discharge back to [facility] today and recommended to see his usual back hoe machine operator on discharge in 1 to 2 weeks. Please see medication reconciliation for a list of current medications. Thank you for allowing us to participate in the care of this patient. The impression and plan of care has been dictated by Jessica Hardin, Nurse Practitioner as directed. Dr. Asher MD I have performed a history and physical examination and medical decision making of this patient, discussed the same with the dictator, and agree with the dictators assessment and plan as written, documented as a scribe. Based on total visit time, I have performed more than 50% of this visit. Patient Condition at Discharge: Stable Plan - Discharge Summary Discharge Rx Participant: Yes New Discharge Prescriptions: Continue Fluticasone/Umeclidin/Vilanter [Trelegy Ellipta 100-62.5-25] 1 puff INHALATION RT-DAILY Nitroglycerin Sl Tabs [Nitrostat] 0.4 mg SUBLINGUAL Q5M PRN PRN Reason: Chest Pain Metoprolol Tartrate [Lopressor] 25 mg PO BID Clopidogrel [Plavix] 75 mg PO DAILY amLODIPine [Norvasc] 2.5 mg PO DAILY Aspirin EC [Ecotrin Low Dose] 81 mg PO DAILY Albuterol Sulfate [Albuterol Sulfate Hfa] 2 puff PO RT-QID PRN PRN Reason: Shortness Of Breath Acamprosate Calcium [Campral] 666 mg PO TID Albuterol Nebulized [Ventolin Nebulized] 2.5 mg INHALATION RT-Q4H PRN PRN Reason: Shortness Of Breath Rosuvastatin [Crestor] 10 mg PO HS Loperamide HCl [Imodium A-D] 4 mg PO QID PRN PRN Reason: Loose Stool Ranolazine [Ranexa] 1,000 mg PO BID Omeprazole [PriLOSEC] 40 mg PO HS Losartan [Cozaar] 25 mg PO HS Ezetimibe [Zetia] 10 mg PO HS Escitalopram [Lexapro] 5 mg PO DAILY Discharge Medication List Acamprosate Calcium [Campral] 666 mg PO TID 07/16/23 [History] Albuterol Nebulized [Ventolin Nebulized] 2.5 mg INHALATION RT-Q4H PRN 07/16/23 [History] Albuterol Sulfate [Albuterol Sulfate Hfa] 2 puff PO RT-QID PRN 07/16/23 [History] Aspirin EC [Ecotrin Low Dose] 81 mg PO DAILY 07/16/23 [History] Clopidogrel [Plavix] 75 mg PO DAILY 07/16/23 [History] Escitalopram [Lexapro] 5 mg PO DAILY 07/16/23 [History] Ezetimibe [Zetia] 10 mg PO HS 07/16/23 [History] Fluticasone/Umeclidin/Vilanter [Trelegy Ellipta 100-62.5-25] 1 puff INHALATION RT-DAILY 07/16/23 [History] Loperamide HCl [Imodium A-D] 4 mg PO QID PRN 07/16/23 [History] Losartan [Cozaar] 25 mg PO HS 07/16/23 [History] Metoprolol Tartrate [Lopressor] 25 mg PO BID 07/16/23 [History] Nitroglycerin Sl Tabs [Nitrostat] 0.4 mg SUBLINGUAL Q5M PRN 07/16/23 [History] Omeprazole [PriLOSEC] 40 mg PO HS 07/16/23 [History] Ranolazine [Ranexa] 1,000 mg PO BID 07/16/23 [History] Rosuvastatin [Crestor] 10 mg PO HS 07/16/23 [History] amLODIPine [Norvasc] 2.5 mg PO DAILY 07/16/23 [History] Follow up Appointment(s)/Referral(s): Erick Stevens DO [REFERRING] - 1 Week Mitch Roe DO [Primary Care Provider] - 1-2 Days Ambulatory/Diagnostic Orders: Basic Metabolic Panel [LAB.AMB] Time Frame: 3 Days, Location: None Selected Magnesium [LAB.AMB] Location: None Selected Activity/Diet/Wound Care/Special Instructions: Can return to [facility] Follow up with your back hoe machine operator in 1 to 2 weeks Repeat BMP In 2 to 3 days Maintain low sodium diet. FOLLOW UP DIRECTED, SOONER FOR WORSENING SYMPTOMS, PROBLEMS, OR CONCERNS. Discharge Disposition: HOME SELF-CARE
== END 2023-07-19 15:34 | disposition home or self-care (01) | DRG 291 ==
LOC: EC 21:03 → 6NMEDSUR 07-16 01:59 → OBSVTOIN 07-19 09:22
PROVIDERS: ADMIT Hospitalist; ATTEND Hospitalist
DX: I11.0 Hypertensive heart disease with heart failure (principal); I50.33 Acute on chronic diastolic (congestive) heart failure; J18.9 Pneumonia, unspecified organism; E87.1 Hypo-osmolality and hyponatremia; J43.2 Centrilobular emphysema; F10.21 Alcohol dependence, in remission; Z99.81 Dependence on supplemental oxygen; E78.5 Hyperlipidemia, unspecified; I25.10 Atherosclerotic heart disease of native coronary artery without angina pectoris; R91.8 Other nonspecific abnormal finding of lung field; I07.1 Rheumatic tricuspid insufficiency; F41.9 Anxiety disorder, unspecified; Z87.891 Personal history of nicotine dependence; Z79.82 Long term (current) use of aspirin; Z79.02 Long term (current) use of antithrombotics/antiplatelets; Z79.899 Other long term (current) drug therapy; Z79.51 Long term (current) use of inhaled steroids; Z95.1 Presence of aortocoronary bypass graft; Z95.5 Presence of coronary angioplasty implant and graft
CPT/HCPCS: 36415; 71046; 71275; 80048; 80053; 83605; 83880; 84145; 84484; 85025; 85379; 85610; 85730; 87040; 87070; 87449; 87636; 93005; 93306; 94640; 94760; 96365; 96367; 96375; 99285